=== PATIENT | female | born 1995 | race Hispanic/Latino ===

== ENCOUNTER 2018-03-30 17:42 | Emergency (ER) | payer OTHER ==
[~2018-03-30] VITALS: Ht 154.9 cm; Wt 65.0 kg
[2018-03-30] MEDS ORDERED: AMOXICILLIN875 MG PO (18:55)
[2018-03-30 19:15] VITALS: BP 105/60
== END 2018-03-30 19:15 | disposition home or self-care (01) ==
LOC: ED 17:42
DX: J02.0 Streptococcal pharyngitis (principal); R05 Cough; R50.9 Fever, unspecified; J02.9 Acute pharyngitis, unspecified; R52 Pain, unspecified

== ENCOUNTER 2024-04-08 18:39 | Emergency (ER) | payer SELFPAY ==
[~2024-04-08] VITALS: Ht 154.9 cm; Wt 77.1 kg
[2024-04-08] VITALS (7 sets, daily range): BP systolic 102–115; BP diastolic 66–71
[~2024-04-08 18:39] MED LIST: AMOXICILLIN875 MG PO
[2024-04-08] MEDS ORDERED: ACETAMINOPHEN 500 MG TAB PO ONE (19:00)
[2024-04-08 19:17] LABS: URINE BILIRUBIN - DIPSTICK Negative (NEGATIVE); URINE BLOOD DIPSTICK Trace-lysed (NEGATIVE); URINE COLOR Yellow; URINE GLUCOSE - DIPSTICK Negative (NEGATIVE); URINE KETONE Negative (NEGATIVE); URINE LEUK ESTERASE Negative (NEGATIVE); URINE NITRITE - DIPSTICK Negative (Negative); URINE PH 7.5 (4.5-8.0); URINE PROTEIN - DIPSTICK Negative (NEG-TRACE); URINE SPECIFIC GRAVITY 1.015; URINE UROBILINOGEN - DIPSTICK 0.2 E.U./dL (0.2)
[2024-04-08] MEDS ORDERED: OSELTAMIVIR PHOSPHATE 75 MG/TAB CAP PO ONE (19:25)
[2024-04-08] MEDS ORDERED: TAM75CAP PO (19:30)
== END 2024-04-08 20:22 | disposition home or self-care (01) | DRG 195 ==
LOC: ED 18:39
PROVIDERS: Nurse Practitioner
DX: J10.1 Influenza due to other identified influenza virus with other respiratory manifestations (principal); Z20.822 Contact with and (suspected) exposure to COVID-19

== ENCOUNTER 2024-06-01 00:28 | Emergency (ER) | payer OTHER ==
[~2024-06-01] VITALS: Ht 154.9 cm; Wt 69.0 kg
[~2024-06-01 00:28] MED LIST changes: +TAM75CAP PO
[2024-06-01] MEDS ORDERED: OXYMETAZOLINE HCL 15 ML/BTL ONE (01:10)
[2024-06-01 01:48] VITALS: BP 107/67
== END 2024-06-01 01:48 | disposition home or self-care (01) ==
LOC: ED 00:28
DX: J06.9 Acute upper respiratory infection, unspecified (principal)